=== PATIENT | female | born 1995 | race Two or more races ===

== ENCOUNTER 2021-05-31 16:36 | Emergency (ER) | payer SELFPAY ==
[~2021-05-31] VITALS: Ht 162.6 cm; Wt 90.9 kg
[2021-05-31] MEDS ORDERED: methylPREDNISolone SOD SUCC PF 125 MG/2 ML VIAL. IV ONE (17:15)
[2021-05-31] MEDS ORDERED: CYCLOBENZAPRINE 10 MG TABLET. PO ONE (17:15)
[2021-05-31 17:22] LABS: BILIRUBIN,URINE NEGATIVE (NEG); CLARITY,URINE CLEAR; COLOR,URINE YELLOW; NITRITE,URINE NEGATIVE (NEG); PROTEIN,URINE NEGATIVE (NEG-TRACE); UROBILINOGEN,URINE 0.2 mg/dL (0.2 mg/dL)
[2021-05-31 17:27] LABS: BACTERIA,URINE MODERATE /HPF (0-FEW); RBC,URINE 0 /HPF (0-2); WBC,URINE OCC /HPF (0-4)
[2021-05-31 17:31] LABS: BASO % 0 % (0-3); EOS # 0.3 x10^3/uL (0.0-0.7); EOS % 2 % (0-3); HEMATOCRIT 40.9 % (36.0-47.0); HEMOGLOBIN 13.5 g/dL (12.0-15.5); LYMPH % 28 % (24-48); MEAN CORPUSCULAR HEMOGLOBIN 28 pg (25-35); MEAN CORPUSCULAR HGB CONC 33 g/dL (31-37); MEAN CORPUSCULAR VOLUME 86 fL (79-100); MONO # 0.9 x10^3/uL (0.0-1.1); MONO % 9 % (0-9); NEUT # 6.5 x10^3/uL (1.8-7.7); NEUT % 61 % (31-73); PLATELET COUNT 354 x10^3/uL (140-400); RED BLOOD COUNT 4.77 x10^6/uL (3.50-5.40); RED CELL DISTRIBUTION WIDTH 13.7 % (11.5-14.5); WHITE BLOOD COUNT 10.7 x10^3/uL (4.0-11.0)
--- NOTE | 2021-05-31 17:31 | EKG ---
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
--- NOTE | 2021-05-31 17:31 | PHYS DOC ---
Past Medical History Past Surgical History: , Hysterectomy General Adult EDM: Chief Complaint: MULTIPLE COMPLAINTS HPI: HPI: Patient is a 26 year old female who presents with 4 months of left shoulder blade pain that will be sharp and shooting around into the her left side under her arm and up into the neck at times. She states that the left arm feels heavy and tingly sometimes. She denies any injury, swelling of the extremity, skin color change, skin temperature change, focal weakness. He states that she also has intermittent dizziness. Patient has a history of and hysterectomy. Denies any pain at this time. Denies abdominal pain, nausea, vomiting, diarrhea, chest pain, shortness of breath, syncope, headache, vision change, focal weakness, swelling. Review of Systems: Review of Systems: Constitutional: Denies fever or chills. [] Eyes: Denies change in visual acuity. [] HENT: Denies nasal congestion or sore throat. + Left neck pain [] Respiratory: Denies cough or shortness of breath. [] Cardiovascular: Denies chest pain or edema. [] GI: Denies abdominal pain, nausea, vomiting, bloody stools or diarrhea. [] : Denies dysuria. [] Musculoskeletal: Denies back pain or + left shoulder joint pain. + Left arm heaviness [] Integument: Denies rash. [] Neurologic: Denies headache, focal weakness or sensory changes. + Left arm tingling [] Endocrine: Denies polyuria or polydipsia. [] Lymphatic: Denies swollen glands. [] Psychiatric: Denies depression or anxiety. [] Heart Score: C/O Chest Pain: No Risk Factors: Risk Factors: DM, Current or recent (<one month) smoker, HTN, HLP, family history of CAD, obesity. Risk Scores: Score 0 - 3: 2.5% MACE over next 6 weeks - Discharge Home Score 4 - 6: 20.3% MACE over next 6 weeks - Admit for Clinical Observation Score 7 - 10: 72.7% MACE over next 6 weeks - Early Invasive Strategies Current Medications: Current Medications Medications (Trade) Dose Ordered Sig/Bimal Start Time Stop Time Status Last Admin Dose Admin Cyclobenzaprine HCl (Flexeril) 10 mg 1X ONCE 05/31/21 17:15 05/31/21 17:16 DC Methylprednisolone Sodium Succinate (SOLU-Medrol 125MG VIAL) 125 mg 1X ONCE 05/31/21 17:15 05/31/21 17:16 DC Allergies: Allergies: Allergies Coded Allergies Type Severity Reaction Last Updated Verified No Known Drug Allergies 05/31/21 No Physical Exam: PE: Constitutional: Well developed, well nourished, no acute distress, non-toxic appearance. [] HENT: Normocephalic, atraumatic, bilateral external ears normal, oropharynx moist, no oral exudates, nose normal. [] Eyes: PERRLA, EOMI, conjunctiva normal, no discharge. [] Neck: Normal range of motion, no tenderness, supple, no stridor. [] Cardiovascular:Heart rate regular rhythm, no murmur [] Lungs & Thorax: Bilateral breath sounds clear to auscultation [] Abdomen: Bowel sounds normal, soft, no tenderness, no masses, no pulsatile masses. [] Skin: Warm, dry, no erythema, no rash. [] Back: No tenderness, no CVA tenderness. [] Extremities: No tenderness, no cyanosis, no clubbing, ROM intact, no edema. [] Neurologic: Alert and oriented X 3, normal motor function, normal sensory function, no focal deficits noted. [] Psychologic: Affect normal, judgement normal, mood normal. [] Normal physical exam Current Patient Data: Labs: Laboratory Tests Test 05/31/21 17:17 POC Urine HCG, Qualitative Hcg negative (Negative) Vital Signs: Vital Signs Date Time Temp Pulse Resp B/P (MAP) Pulse Ox O2 Delivery O2 Flow Rate FiO2 05/31/21 16:56 98.4 92 18 126/77 (93) 99 Room Air 98.4 EKG: EK and read by Dr. Peng as sinus rhythm and no STEMI. Radiology/Procedures: Radiology/Procedures: [] Impression: [facility] [address] [place] [address] IMAGING REPORT Signed PATIENT: DIANA MCNEAL ACCOUNT: [id number] : 1995 LOCATION: ER AGE: 26 SEX: F EXAM STATUS: PRE ER ORD. PHYSICIAN: JESÚS KRAUS APRN REASON: dizzy PROCEDURE: CT HEAD WO CONTRAST INDICATION: Reason: dizzy / Spl. Instructions: / History: COMPARISON: None. TECHNIQUE: Axial CT images obtained through the head without intravenous contrast. One or more of the following individualized dose reduction techniques were utilized for this examination: 1. Automated exposure control; 2. Adjustment of the mA and/or kV according to patient size; 3. Use of iterative reconstruction technique. FINDINGS: No intracranial hemorrhage. No significant midline shift. Ventricles and sulci are unremarkable. No acute osseous abnormality. IMPRESSION: * No acute intracranial hemorrhage. Electronically signed by: Osei Garcia MD (05/31/2021 5:57 PM) [id number] DICTATED and SIGNED BY: OSEI GARCIA MD DATE: 05/31/21 [id number] [facility] [address] [place] [address] IMAGING REPORT Signed PATIENT: DIANA MCNEAL ACCOUNT: [id number] : 1995 LOCATION: ER AGE: 26 SEX: F EXAM STATUS: PRE ER ORD. PHYSICIAN: JESÚS KRAUS APRN REASON: dizziness, lateral chest pain PROCEDURE: PORTABLE CHEST 1V EXAM: AP View of the chest DATE: 05/31/2021 5:31 PM INDICATION: Reason: dizziness, lateral chest pain / Spl. Instructions: / History: COMPARISON: No Prior FINDINGS: The heart is not enlarged. Mediastinal and hilar contours are normal. No focal parenchymal airspace opacity. No pleural effusion or pneumothorax. IMPRESSION: 1. No radiographic evidence for acute cardiopulmonary process. Electronically signed by: Fadi De La Paz MD (05/31/2021 6:26 PM) [facility] DICTATED and SIGNED BY: FADI DE LA PAZ MD DATE: 05/31/21 [id number] Course & Med Decision Making: Course & Med Decision Making Pertinent Labs and Imaging studies reviewed. (See chart for details) See HPI. Alert and oriented x4. Ambulatory steady gait. Skin pink warm and dry. Radial pulse strong and present. No tenderness to the left arm or shoulder. No swelling, laxity or deformity to any joint. No bruising. Full range of motion of the shoulder and elbow joint. She can wiggle her fingers. Full strengths and movements. Cap refill less than 2 seconds. No swelling to the extremity itself. Full range of motion of the neck. Throat is pink and without swelling or exudates. Afebrile. Uvula midline. No trismus. No swelling or tenderness to the neck. Lungs are clear to auscultation all lobes. No swelling or tenderness to the axilla or upper left rib cage area. No crepitus. No subcutaneous emphysema. No calf tenderness. No recent surgery, recent travel. Blood work unremarkable. CT head shows no acute findings. Wells negative. PERC negative. [] Dragon Disclaimer: Dragon Disclaimer: This electronic medical record was generated, in whole or in part, using a voice recognition dictation system. Departure Departure Impression: Primary Impression: Cervical radiculopathy Disposition: HOME / SELF CARE / HOMELESS Condition: STABLE Patient Instructions: Cervical Radiculopathy Additional Instructions: Follow-up with your primary care provider. Take medication as prescribed and with food. Drink plenty of fluids. If you begin having swelling of your arm or skin color changes return to the emergency room. Scripts Cyclobenzaprine Hcl (CYCLOBENZAPRINE HCL) 5 Mg Tablet 1 TAB PO TID for 5 Days, #15 TAB Prov: JESÚS KRAUS APRN 05/31/21 Ibuprofen (IBUPROFEN) 600 Mg Tablet 600 MG PO PRN Q6HRS PRN for INFLAMMATION, #30 TAB Prov: JESÚS KRAUS APRN 05/31/21 Methylprednisolone (MEDROL) 4 Mg Tab.ds.pk 1 PKG PO UD, #1 PKG Prov: JESÚS KRAUS APRN 05/31/21 JESÚS KRAUS APRN May 31, 2021 17:31
[2021-05-31 17:43] LABS: CALCIUM 9.3 mg/dL (8.5-10.1); CREATININE 0.7 mg/dL (0.6-1.0); GFR 99.6; POTASSIUM 3.8 mmol/L (3.5-5.1)
[2021-05-31 17:55] LABS: ALBUMIN 3.8 g/dL (3.4-5.0); ALBUMIN/GLOBULIN RATIO 0.8 (1.0-1.7); TOTAL BILIRUBIN 0.1 mg/dL (0.2-1.0); TOTAL PROTEIN 8.5 g/dL (6.4-8.2)
--- NOTE | 2021-05-31 18:00 | RAD ---
INDICATION: Reason: dizzy / Spl. Instructions: / History: COMPARISON: None. TECHNIQUE: Axial CT images obtained through the head without intravenous contrast. One or more of the following individualized dose reduction techniques were utilized for this examinat ion: 1. Automated exposure control; 2. Adjustment of the mA and/or kV according to patient size; 3 . Use of iterative reconstruction technique. FINDINGS: No intracranial hemorrhage. No significant midline shift. Ventricles and sulci are unremarkable. No acute osseous abnormality. IMPRESSION: * No acute intracranial hemorrhage. Electronically signed by: Gilles Martino MD (05/31/2021 5:57 PM) [id number]
--- NOTE | 2021-05-31 18:28 | RAD ---
EXAM: AP View of the chest DATE: 05/31/2021 5:31 PM INDICATION: Reason: dizziness, lateral chest pain / Spl. Instructions: / History: COMPARISON: No Prior FINDINGS: The heart is not enlarged. Mediastinal and hilar contours are normal. No focal parenchymal airspace opacity. No pleural effusion or pneumothorax. IMPRESSION: 1. No radiographic evidence for acute cardiopulmonary process. Electronically signed by: Fadi Layne MD (05/31/2021 6:26 PM) [facility]
[2021-05-31] MEDS ORDERED: IBUP-1007 PO (18:33)
[2021-05-31] MEDS ORDERED: METH4TAB2 PO (18:33)
[2021-05-31] MEDS ORDERED: CYCL5TAB PO (18:34)
[2021-05-31 18:58] VITALS: BP 107/66
== END 2021-05-31 17:30 | disposition home or self-care (01) ==
LOC: ER 16:36
DX: M54.12 Radiculopathy, cervical region (principal); R51.9 Headache, unspecified
CPT/HCPCS: 36415; 70450; 71045; 80053; 81001; 81025; 83690; 83735; 84484; 85025; 87086; 93005; 96374; 99285; J2930